=== PATIENT | male | born 1975 | race Caucasian/White ===

== ENCOUNTER 2016-11-24 19:44 | Emergency (ER) | payer OTHER ==
--- NOTE | ~2016-11-24 | EKG ---
PATIENT: REINA LIN UNIT #: [id number] Ventricular Rate: 81 BPM Atrial Rate: 81 BPM P-R Interval: 136 ms QRS Duration: 86 ms Q-T Interval: 366 ms QTC Calculation(Bezet): 425 ms P Rhame: 31 degrees Calculated R Rhame: -13 degrees Calculated T Rhame: 60 degrees Diagnosis Line: Normal sinus rhythm Diagnosis Line: Normal ECG Diagnosis Line: No previous ECGs available Diagnosis Line: Confirmed by GENO SINCLAIR MD ([id number]) on Diagnosis Line: 11/25/2016 5:08:20 PM INTERPRETING MD: DOTTIE CHEUNG
[~2016-11-24 19:44] MED LIST: AMOXICILLIN500 M1 PO; NO MEDICATIONS; TRAMADOL HCL50 M1 PO
== END 2016-11-24 22:41 | disposition home or self-care (01) ==
LOC: CED 19:44
DX: H65.93 Unspecified nonsuppurative otitis media, bilateral (principal); J44.9 Chronic obstructive pulmonary disease, unspecified; F41.9 Anxiety disorder, unspecified; Z91.040 Latex allergy status
CPT/HCPCS: 93005; 99283